=== PATIENT | male | born 1970 | race Two or more races ===

== ENCOUNTER 2017-12-15 11:00 | Emergency (ER) | payer SELFPAY ==
[~2017-12-15] VITALS: Ht 180.3 cm; Wt 96.0 kg
[2017-12-15 11:02] VITALS: BP 118/74
== END 2017-12-15 11:59 | disposition home or self-care (01) ==
LOC: ED 11:53
DX: B20 Human immunodeficiency virus [HIV] disease (principal); R20.2 Paresthesia of skin; R20.0 Anesthesia of skin; Z76.0 Encounter for issue of repeat prescription
CPT/HCPCS: 99283

== ENCOUNTER 2017-12-15 16:23 | Emergency (ER) | payer MEDICARE ==
[~2017-12-15] VITALS: Ht 180.3 cm; Wt 95.6 kg
[2017-12-15 16:24] VITALS: BP 131/76
[2017-12-15] MEDS ORDERED: LORazepam 1MG TABLET PO ONE (17:00)
[2017-12-15] MEDS ORDERED: LORazepam 1MG TABLET ONE (17:42)
== END 2017-12-15 18:24 | disposition home or self-care (01) ==
LOC: ED 18:17
DX: F41.1 Generalized anxiety disorder (principal); B20 Human immunodeficiency virus [HIV] disease
CPT/HCPCS: 99284